=== PATIENT | female | born 1975 | race Caucasian/White ===

== ENCOUNTER 2020-01-23 09:53 | Emergency (ER) | payer MEDICAID ==
[~2020-01-23] VITALS: Ht 165.1 cm; Wt 89.4 kg
[2020-01-23 10:04] VITALS: Ht 165.1 cm; Wt 89.4 kg
[2020-01-23 11:16] VITALS: BP 162/85
== END 2020-01-23 11:16 | disposition home or self-care (01) ==
LOC: ED 09:53
DX: M50.30 Other cervical disc degeneration, unspecified cervical region (principal); M48.02 Spinal stenosis, cervical region; M79.7 Fibromyalgia
CPT/HCPCS: J1885